=== PATIENT | male | born 1990 | race Hispanic/Latino ===

== ENCOUNTER 2023-02-26 13:36 | Emergency (ER) | payer OTHER ==
[~2023-02-26] VITALS: Ht 177.8 cm; Wt 111.1 kg
[2023-02-26 14:33] LABS: RAPID GROUP A STREP negative (NEGATIVE)
[2023-02-26 14:35] LABS: SARS-CoV-2, RNA, NAAT NEGATIVE SARS CoV-2 (NEGATIVE)
[2023-02-26 14:43] LABS: INFLUENZA TYPE A Negative For Type A (NEGATIVE); INFLUENZA TYPE B Negative For Type B (NEGATIVE)
[2023-02-26] MEDS ORDERED: FAMOTIDINE 20MG TAB PO ONE (16:00)
[2023-02-26] MEDS ORDERED: IBUPROFEN 600 MG TABLET PO ONE (16:00)
[2023-02-26] MEDS ORDERED: PREDNISONE 20 MG TABLET PO ONE (16:00)
[2023-02-26 16:20] LABS: BASOPHILS # (AUTO) 0.01 K/uL (0.00-0.20); BASOPHILS % (AUTO) 0.1 % (0.0-5.0); HEMATOCRIT 46.2 % (42-54); IMMATURE GRANULOCYTE ABSOLUTE 0.02 K/uL (0-1); LYMPHOCYTES # (AUTO) 1.1 K/uL (1.0-4.8); LYMPHOCYTES % (AUTO) 16.4 % (21.0-51.0); MEAN CORPUSCULAR HEMOGLOBIN 28.9 pg (27.0-33.0); MEAN CORPUSCULAR HGB CONC 32.7 g/dL (32.0-36.0); MEAN CORPUSCULAR VOLUME 88.5 fL (79-99); MONOCYTES # (AUTO) 0.5 K/uL (0.1-1.0); MONOCYTES % (AUTO) 7.6 % (3.0-13.0); NEUTROPHILS # (AUTO) 5.1 K/uL (1.8-7.7); NEUTROPHILS % (AUTO) 75.6 % (40.0-77.0); PLATELET COUNT (AUTO) 143 K/uL (130-400); RED BLOOD CELL COUNT(AUTO) 5.22 MIL/uL (4.50-6.20); RED CELL DISTRIBUTION WIDTH 12.3 % (11.0-15.5); WHITE BLOOD COUNT (AUTO) 6.7 K/uL (4.8-10.8)
[2023-02-26 16:22] LABS: CREATININE 1.1 mg/dL (0.5-1.5); POTASSIUM 3.5 mmol/L (3.5-5.1)
[2023-02-26 16:26] LABS: ALBUMIN 3.7 g/dL (3.5-5.0); BILIRUBIN,TOTAL 0.9 mg/dL (0.2-1.0); TOTAL PROTEIN, SERUM 8.3 g/dL (6.0-8.3)
[2023-02-26 16:40] LABS: ADD UA MICROSCOPIC YES; APPEARANCE,URINE CLEAR (CLEAR); BILIRUBIN,URINE NEGATIVE (NEGATIVE); COLOR,URINE YELLOW (YELLOW); GLUCOSE, URINE (UA) NEGATIVE (NEGATIVE); KETONES,URINE 5 mg/dL (NEGATIVE); LEUKOCYTE ESTERASE ,URINE NEGATIVE Leu/uL (NEGATIVE); NITRATE,URINE NEGATIVE (NEGATIVE); OCCULT BLOOD,URINE MODERATE (NEGATIVE); PROTEIN,URINE 50 mg/dL (NEGATIVE)
[2023-02-26 16:43] LABS: BACTERIA,URINE RARE /HPF (None Seen); MUCUS,URINE FEW LPF (None Seen); RBC,URINE 26-50 /HPF (0-1); SQUAMOUS EPITHELIAL CELL,UR RARE /HPF (0-2); WBC,URINE 0-1 /HPF (0-1)
[2023-02-26 16:49] LABS: AMPHET/METH SCREEN,URINE NEGATIVE (NEGATIVE); BARBITURATE SCREEN, URINE NEGATIVE (NEGATIVE); BENZODIAZEPINES SCREEN,URINE NEGATIVE (NEGATIVE); CANNABINOID SCREEN,URINE NEGATIVE (NEGATIVE); COCAINE SCREEN,URINE NEGATIVE (NEGATIVE); OPIATE SCREEN,URINE NEGATIVE (NEGATIVE); PHENCYCLIDINE SCREEN,URINE NEGATIVE (NEGATIVE)
[2023-02-26] MEDS ORDERED: CIPR-278 PO (18:06)
[2023-02-26] MEDS ORDERED: TAMS-1 PO (18:14)
[2023-02-26 18:42] VITALS: BP 123/68; PULSE 84; RESP 16; O2SAT 99
== END 2023-02-26 18:45 | disposition home or self-care (01) ==
LOC: EDH 13:36
DX: N30.00 Acute cystitis without hematuria (principal); N20.0 Calculus of kidney; Z20.822 Contact with and (suspected) exposure to COVID-19; Z79.899 Other long term (current) drug therapy
CPT/HCPCS: 99284; 74176; 71045; 87635; 80053; 80305; 85025; 87880; 87804 ×2; 36415; 81001; C9803

== ENCOUNTER 2023-03-21 19:09 | Emergency (ER) | payer OTHER ==
[~2023-03-21] VITALS: Ht 177.8 cm; Wt 106.6 kg
[~2023-03-21 19:09] MED LIST: CIPR-278 PO; TAMS-1 PO
[2023-03-22] MEDS ORDERED: CETIRIZINE HCL 5 MG TABLET PO SCH (00:30)
[2023-03-22] MEDS ORDERED: CETI10CA5 PO (00:39)
[2023-03-22 00:56] VITALS: BP 120/68; PULSE 90; RESP 19; O2SAT 99
== END 2023-03-22 00:53 | disposition home or self-care (01) ==
LOC: EDH 19:09
DX: H10.13 Acute atopic conjunctivitis, bilateral (principal); Z79.899 Other long term (current) drug therapy

== ENCOUNTER 2023-11-30 13:49 | Emergency (ER) | payer SELFPAY ==
[~2023-11-30] VITALS: Ht 177.8 cm; Wt 111.6 kg
[~2023-11-30 13:49] MED LIST changes: +CETI10CA5 PO
[2023-11-30 14:17] LABS: BASOPHILS # (AUTO) 0.05 K/uL (0.00-0.20); BASOPHILS % (AUTO) 0.5 % (0.0-5.0); HEMATOCRIT 44.4 % (42-54); IMMATURE GRANULOCYTE ABSOLUTE 0.05 K/uL (0-1); LYMPHOCYTES # (AUTO) 2.6 K/uL (1.0-4.8); LYMPHOCYTES % (AUTO) 24.7 % (21.0-51.0); MEAN CORPUSCULAR HEMOGLOBIN 29.1 pg (27.0-33.0); MEAN CORPUSCULAR HGB CONC 32.7 g/dL (32.0-36.0); MEAN CORPUSCULAR VOLUME 89.2 fL (79-99); MONOCYTES # (AUTO) 0.7 K/uL (0.1-1.0); MONOCYTES % (AUTO) 6.9 % (3.0-13.0); NEUTROPHILS # (AUTO) 6.9 K/uL (1.8-7.7); NEUTROPHILS % (AUTO) 66.4 % (40.0-77.0); PLATELET COUNT (AUTO) 230 K/uL (130-400); RED BLOOD CELL COUNT(AUTO) 4.98 MIL/uL (4.50-6.20); RED CELL DISTRIBUTION WIDTH 12.4 % (11.0-15.5); WHITE BLOOD COUNT (AUTO) 10.4 K/uL (4.8-10.8)
[2023-11-30 14:28] LABS: CREATININE 0.9 mg/dL (0.5-1.3); POTASSIUM 3.7 mmol/L (3.5-5.1)
[2023-11-30 14:34] LABS: ALBUMIN 3.8 g/dL (3.5-5.0); BILIRUBIN,TOTAL 0.3 mg/dL (0.2-1.0); TOTAL PROTEIN, SERUM 7.6 g/dL (6.0-8.3)
[2023-11-30 14:45] LABS: B-TYPE NATRIURETIC PEPTIDE 14 pg/mL (0-100)
[2023-11-30 15:06] VITALS: BP 109/69; PULSE 79; RESP 14; TEMP 98.8; O2SAT 99
== END 2023-11-30 15:35 | disposition home or self-care (01) ==
LOC: EDH 13:49
DX: R00.2 Palpitations (principal); Z79.899 Other long term (current) drug therapy
CPT/HCPCS: 36415; 71045; 80053; 82550; 83880; 84484; 85025; 93005

== ENCOUNTER 2024-02-16 18:59 | Emergency (ER) | payer SELFPAY ==
[~2024-02-16] VITALS: Ht 177.8 cm; Wt 113.4 kg
--- NOTE | 2024-02-16 19:04 | ERN ---
ED Note History of Present Illness Stated Complaint: L FLANK PAIN ONSET 1530 Chief Complaint: Flank Pain Time Seen by MD: 19:01 Dictation: PATIENT IS A 33-YEAR-OLD MALE COMING IN TODAY WITH THE ACUTE ONSET OF LEFT FLANK PAIN THAT RADIATES TO LEFT LOWER QUADRANT, COLICKY WITH NAUSEA ONSET15 30 THIS AFTERNOON. NO FEVER NO CHILLS. STATES HE HAS A HISTORY OF KIDNEY STONES HOWEVER NO UROLOGIST AND NO PRIMARY CARE DOCTOR. HAS NOT TAKEN ANYTHING PRIOR TO ARRIVAL FOR PAIN. Allergies: Coded Allergies: No Known Drug Allergies (Unverified Allergy, Unknown, 02/26/23) Home Meds Active Scripts Tamsulosin HCl (Flomax) 0.4 Mg Cap.er.24h, 0.4 MG PO DAILY for 14 Days, #14 CAPSULE.DR 0 Refills Prov:HAYLEE CHANG NP 02/16/24 Ibuprofen (Ibuprofen 800 mg Tab) 800 Mg Tab, 800 MG PO Q8H PRN for fever or pain, #30 TAB 0 Refills Prov:HAYLEE CHANG NP 02/16/24 Levofloxacin (Levofloxacin) 500 Mg Tablet, 1 TAB PO DAILY for 10 Days, #10 TAB 0 Refills Prov:HAYLEE CHANG NP 02/16/24 Cetirizine HCl (Zyrtec) 10 Mg Capsule, 10 MG PO DAILY, #30 CAP 2 Refills Prov:FRANNIE MAN Sr., MD 03/22/23 Tamsulosin HCl (Flomax) 0.4 Mg Cap.er.24h, 0.4 MG PO DAILY, #14 CAPSULE. Prov:KATHRYN ISSAP 02/26/23 Ciprofloxacin HCl (Cipro) 500 Mg Tablet, 1 TAB PO BID for 10 Days, #20 TAB 0 Refills Prov:KATHRYN ISSA [facility] 02/26/23 Past Medical History Past Medical History: No Pertinent History Surgical History: None PSYCH History: no pertinent psych hx RN Note Reviewed/Agreed w/PFSH: Yes Review of System Dictation CONSTITUTIONAL: NEGATIVE EXCEPT FOR HPI HEAD/FACE: NEGATIVE EXCEPT FOR HPI EENT: NEGATIVE EXCEPT FOR HPI RESPIRATORY: NEGATIVE EXCEPT FOR HPI GASTROINTESTINAL/ABDOMINAL: NEGATIVE EXCEPT FOR HPI LEFT FLANK PAIN RADIATING TO LEFT LOWER QUADRANT WITH NAUSEA GENITOURINARY: NEGATIVE EXCEPT FOR HPI MUSCULOSKELETAL: NEGATIVE EXCEPT FOR HPI INTEGUMENTARY: NEGATIVE EXCEPT FOR HPI NEUROLOGICAL/PSYCH: NEGATIVE EXCEPT FOR HPI HEMATOLOGIC/LYMPHATIC: NEGATIVE EXCEPT FOR HPI ALL SYSTEMS NEGATIVE, EXCEPT NOTED ABOVE. 13 POINT REVIEW OF SYSTEMS ASSESSED AND ALL NEGATIVE EXCEPT FOR ABOVE. Initial Vital Sign VS Vital Signs Date Time Temp Pulse Resp B/P (MAP) Pulse Ox O2 Delivery O2 Flow Rate FiO2 02/16/24 19:06 97.3 88 18 143/66 97 Room Air* 0 21 Physical Exam Dictation VITAL SIGNS REVIEWED GENERAL APPEARANCE: ALERT, ORIENTED X 3, MODERATE ACUTE DISTRESS, WELL DEVELOPED, NOURISHED. HEAD AND FACE: NON-TRAUMATIC. EYES: PERRL, PINK CONJUNCTIVAS, EYELID NO TRAUMA, ANTERIOR CHAMBER WITH ARCUS SENILIS. EARS: PINNAS INTACT AND NO SIGNS OF TRAUMA OR ERYTHEMA EAR CANALS CLEAR AND NO DISCHARGE TM NO ERYTHEMA NOSE: NO DISCHARGE, NO BLEEDING. OROPHARYNX: MOUTH NORMAL, TONGUE PINK, PHARYNX CLEAR,NO ERYTHEMA, TONSILS NO EXUDATES, NO ABSCESSES NOTED, MUCOUS MEMBRANE MOIST NECK: SUPPLE, NON-TENDER, NO THYROMEGALY, NO MASSES, NO JVD, NO BRUITS BREAST:DEFERRED CHEST:NO TENDERNESS, NO CREPITUS, NO PARADOXICAL MOVEMENT, NO RETRACTIONS LUNGS:CLEAR, WELL-VENTILATED, SYMMETRIC, NO RALES, NO WHEEZING, NO RHONCHI, NO STRIDOR, GOOD BREATH SOUNDS BILATERALLY HEART: REGULAR RATE, REGULAR RHYTHM, NO MURMUR, NO GALLOPS VASCULAR: NO PERIPHERAL EDEMA, ABDOMEN: SOFT, POSITIVE BOWEL SOUNDS, NONDISTENDED, NO GUARDING, NONTENDER, NO REBOUND, NO MASSES NO HEPATOMEGALY, NO SPLENOMEGALY, NO AHMADI'S SIGN, NO HERNIAS. NO FOCAL TENDERNESS, NEGATIVE CVAT RECTAL: DEFERRED GENITAL: DEFERRED NEUROLOGICAL: NORMAL SPEECH, MOTOR FUNCTION INTACT, SENSORY FUNCTION INTACT MUSCULOSKELETAL: NECK NONTENDER, FULL RANGE OF MOTION, BACK NONTENDER, FULL RANGE OF MOTION, EXTREMITIES: NONTENDER, FULL RANGE OF MOTION SKIN: COLOR PINK, DRY, NO TURGOR, NO RASH, NO LACERATIONS, NO ABRASIONS, NO CONTUSIONS. LYMPHATIC: DEFERRED Results (Laboratory/Radiology) Laboratory/Radiology Laboratory Tests Test 02/16/24 19:27 White Blood Count 16.0 K/uL (4.8-10.8) H Red Blood Count 5.05 MIL/uL (4.50-6.20) Hemoglobin 14.9 g/dL (14.0-18.0) Hematocrit 44.6 % (42-54) Mean Corpuscular Volume 88.3 fL (79-99) Mean Corpuscular Hemoglobin 29.5 pg (27.0-33.0) Mean Corpuscular Hemoglobin Concent 33.4 g/dL (32.0-36.0) Red Cell Distribution Width 12.5 % (11.0-15.5) Platelet Count 212 K/uL (130-400) Mean Platelet Volume 9.6 fL (7.5-10.5) Immature Granulocyte % (Auto) 0.5 % (0-1) Neutrophils (%) (Auto) 84.4 % (40.0-77.0) H Lymphocytes (%) (Auto) 11.4 % (21.0-51.0) L Monocytes (%) (Auto) 3.3 % (3.0-13.0) Eosinophils (%) (Auto) 0.1 % (0.0-8.0) Basophils (%) (Auto) 0.3 % (0.0-5.0) Neutrophils # (Auto) 13.5 K/uL (1.8-7.7) H Lymphocytes # (Auto) 1.8 K/uL (1.0-4.8) Monocytes # (Auto) 0.5 K/uL (0.1-1.0) Eosinophils # (Auto) 0.02 K/uL (0.00-0.70) Basophils # (Auto) 0.05 K/uL (0.00-0.20) Absolute Immature Granulocyte (auto 0.08 K/uL (0-1) Nucleated Red Blood Cells 0.0 % (0.0-0.19) Sodium Level 137 mmol/L (136-145) Potassium Level 3.5 mmol/L (3.5-5.1) Chloride Level 99 mmol/L (101-111) L Carbon Dioxide Level 26 mmol/L (21-32) Blood Urea Nitrogen 16 mg/dL (7-18) Creatinine 1.1 mg/dL (0.5-1.3) Glomerular Filtration Rate Calc 91 mL/min (>90) Random Glucose 127 mg/dL (70-105) H Total Calcium 9.0 mg/dL (8.5-10.1) Labs Reviewed?: Yes ED Course ED Course Orders Procedure Category Date Status Time Tamsulosin Hcl PHA 02/16/24 Complete (Flomax) 19:30 Cbc With Differential LAB 02/16/24 Complete 19:02 0.9%Nacl 1000ml (Ns PHA 02/16/24 Complete 1000ml) 19:30 Ketorolac PHA 02/16/24 Complete Tromethamine 30mg/Ml 19:30 Ondansetron 4mg Inj PHA 02/16/24 Complete (Zofran 4mg Inj) 19:30 Ct Abdomen/Pelvis W/O CT 02/16/24 Resulted Contrast 19:02 Basic Metabolic Panel LAB 02/16/24 Complete 19:02 Ceftriaxone 1g Vial PHA 02/16/24 Complete (Rocephine 1g Inj) 20:30 Ibuprofen 800 Mg Tab PHA 02/16/24 Complete (Motrin) 20:30 Current Medications Medications (Trade) Dose Ordered Sig/Nate Route PRN Reason Start Time Stop Time Status Last Admin Dose Admin Ceftriaxone Sodium (ROCEphine 1G INJ) 1 gm ONCE ONCE IM 02/16/24 20:30 02/16/24 20:39 DC 02/16/24 20:47 Ibuprofen (moTRIN) 800 mg ONCE ONCE PO 02/16/24 20:30 02/16/24 20:31 DC 02/16/24 20:48 Ketorolac Tromethamine (toRADol) 30 mg ONCE ONCE IVP 02/16/24 19:30 02/16/24 19:31 DC 02/16/24 19:12 Ondansetron HCl (zoFRAN 4MG INJ) 4 mg ONCE ONCE IVP 02/16/24 19:30 02/16/24 19:31 DC 02/16/24 19:12 Sodium Chloride 1,000 ml @ 0 mls/hr ONCE ONCE IV 02/16/24 19:30 02/16/24 19:31 DC 02/16/24 19:12 Tamsulosin HCl (FloMAX) 0.8 mg ONCE ONCE PO 02/16/24 19:30 02/16/24 19:31 DC 02/16/24 19:12 Vital Signs Date Time Temp Pulse Resp B/P (MAP) Pulse Ox O2 Delivery O2 Flow Rate FiO2 02/16/24 19:06 97.3 88 18 143/66 97 Room Air 0 02/16/24 19:06 97.3 88 18 143/66 97 Room Air* 0 2106, PAIN IS MARKEDLY RELIEVED AFTER IV FLUIDS AND MEDICATIONS/IV FLUIDS. RENAL FUNCTION IS NORMAL NO ELECTROLYTE IMBALANCE. Medical Decision Making MDM MDM: DIFFERENTIAL DIAGNOSIS: UTI/URETERAL COLIC/KIDNEY STONE STONE/PYELONEPHRITIS/ELECTROLYTE IMBALANCE/DEHYDRATION/FOREST RATIONALE: TESTS CONSIDERED AND ORDERED SECONDARY TO SHARED DECISION MAKING INCLUDE: RADIOLOGY/LABS PREVIOUS OUTSIDE RECORDS REVIEWED: OLD ER VISITS. REVIEWED RISK OF COMPLICATION AND/OR MORBIDITY OR MORTALITY OF PATIENT MANAGEMENT: NONE MEDICATIONS-PER MEDICATION RECONCILIATION SEE NURSE'S NOTES NEED FOR HOSPITALIZATION: PATIENT DOES NOT MEET CRITERIA FOR HOSPITALIZATION. NO NEED FOR EMERGENCY MAJOR/MINOR SURGERY: NO THERE ARE NO SOCIAL CONCERNS WITH THIS PATIENT. PRESCRIPTION DRUG MANAGEMENT FLOMAX/MOTRIN/LEVAQUIN PRESCRIPTIONS WILL INCLUDE SYMPTOMATIC CARE PATIENT'S PRIOR EXTERNAL MEDICAL RECORDS FROM OTHER ER VISITS WERE REVIEWED BY ME INDICATED. PRIOR TESTING AND RESULTS FROM PREVIOUS VISITS WERE REVIEWED. PRIOR TESTS WERE TAKEN INTO ACCOUNT WITH MEDICAL DECISION MAKING AND RESOURCE UTILIZATION, INDEPENDENT HISTORIAN/HISTORIANS WERE USED TO OBTAIN COMPLETE MEDICAL HISTORY. I INDEPENDENTLY INTERPRETED THE TEST THAT WERE PERFORMED, RESULTS WERE REVIEWED BY ME AND CONSIDERED FINDINGS ON RADIOLOGY IF ORDERED. MEDICAL MANAGEMENT AND EXAMINATION INTERPRETATION DISCUSSIONS WERE HAD BY ME WITH OTHER QUALIFIED HEALTHCARE PROFESSIONALS INDICATED FOR THE PATIENT'S CARE. DX & DISP Disposition: Discharge Departure Impression: Primary Impression: Calculus of left kidney Additional Impressions: Hydronephrosis, left, Hyperglycemia, Ureter colic Condition: Stable Scripts Tamsulosin HCl (Flomax) 0.4 Mg Cap.er.24h 0.4 MG PO DAILY for 14 Days, #14 CAPSULE.DR 0 Refills Prov: HAYLEE CHANG [employer] 02/16/24 Ibuprofen (Ibuprofen 800 mg Tab) 800 Mg Tab 800 MG PO Q8H PRN for fever or pain, #30 TAB 0 Refills Prov: HAYLEE CHANG [employer] 02/16/24 Levofloxacin (Levofloxacin) 500 Mg Tablet 1 TAB PO DAILY for 10 Days, #10 TAB 0 Refills Prov: HAYLEE CHANG [employer] 02/16/24 Additional Instructions: FOLLOW-UP WITH PRIMARY CARE PROVIDER IN 1 TO 2 DAYS. TAKE MEDICATIONS DIRECTED HERE IN THE EMERGENCY ROOM. OKAY TO CONTINUE HOME MEDICATIONS UNLESS OTHERWISE DISCUSSED DURING YOUR VISIT IN THE EMERGENCY ROOM TODAY. RETURN TO YOUR NEAREST EMERGENCY ROOM IF SYMPTOMS WORSEN OR IF THERE IS NO IMPROVEMENT. CALL 911 IF YOU NEED IMMEDIATE ASSISTANCE. TAKE TYLENOL OR MOTRIN [id number] NEEDED AND IF NO CONTRAINDICATIONS ARE PRESENT. INCREASE ORAL HYDRATION. A WOUND CULTURE OR URINE CULTURE WAS ORDERED HERE IN THE EMERGENCY ROOM DEPARTMENT PLEASE FOLLOW-UP WITH PRIMARY CARE PROVIDER AND ADVISE THEM TO GET REPEAT PORTS FROM OUR FACILITY. IF YOU HAD ANY ERASMO WRAP/SPLINTS THAT WERE APPLIED HERE, PLEASE DO NOT REMOVE THEM UNTIL YOU SEE YOUR PRIMARY CARE OR SPECIALTY. INCREASE WATER TO A HALF A GAL A DAY. TAKE ANTIBIOTICS DIRECTED UNTIL GONE. TAKE FLOMAX DAILY FOR THE NEXT14 DAYS. Referrals: SELF,REFERRAL (PCP) ATTESTATION BY PHYSICIAN I PERFORMED THE SUBSTANTIVE PORTION OF THE VISIT. I HAVE REVIEWED AND PERSONALLY MADE AND APPROVED THE MANAGEMENT PLAN THAT IS DOCUMENTED IN THE NOTE BY MYSELF FOR THE A PP. I ACKNOWLEDGED FOR RESPONSIBILITY FOR THE PATIENT'S MANAGEMENT PLAN. HAYLEE CHANG NP Feb 16, 2024 19:04 LEO JUNIOR MD Feb 19, 2024 03:03
[2024-02-16 19:06] VITALS: BP 143/66; PULSE 88; RESP 18; TEMP 97.3; O2SAT 97
[2024-02-16] MEDS: ketOROlac 30MG VIAL (30MG/ML) IVP ONE (19:12)
[2024-02-16] MEDS: 0.9%NACL 1000ML 1,000 ML IV ONE (19:12)
[2024-02-16] MEDS: ondanSETRON 4MG INJ IVP ONE (19:12)
[2024-02-16] MEDS: tamSULOsin HCL 0.4 MG CAP.ER.24H PO ONE (19:12)
[2024-02-16 19:37] LABS: BASOPHILS # (AUTO) 0.05 K/uL (0.00-0.20); BASOPHILS % (AUTO) 0.3 % (0.0-5.0); EOSINOPHILS # (AUTO) 0.02 K/uL (0.00-0.70); EOSINOPHILS % (AUTO) 0.1 % (0.0-8.0); HEMATOCRIT 44.6 % (42-54); IMMATURE GRANULOCYTE ABSOLUTE 0.08 K/uL (0-1); LYMPHOCYTES # (AUTO) 1.8 K/uL (1.0-4.8); LYMPHOCYTES % (AUTO) 11.4 % (21.0-51.0); MEAN CORPUSCULAR HEMOGLOBIN 29.5 pg (27.0-33.0); MEAN CORPUSCULAR HGB CONC 33.4 g/dL (32.0-36.0); MEAN CORPUSCULAR VOLUME 88.3 fL (79-99); MONOCYTES # (AUTO) 0.5 K/uL (0.1-1.0); MONOCYTES % (AUTO) 3.3 % (3.0-13.0); NEUTROPHILS # (AUTO) 13.5 K/uL (1.8-7.7); NEUTROPHILS % (AUTO) 84.4 % (40.0-77.0); PLATELET COUNT (AUTO) 212 K/uL (130-400); RED BLOOD CELL COUNT(AUTO) 5.05 MIL/uL (4.50-6.20); RED CELL DISTRIBUTION WIDTH 12.5 % (11.0-15.5)
[2024-02-16 19:45] LABS: CREATININE 1.1 mg/dL (0.5-1.3); POTASSIUM 3.5 mmol/L (3.5-5.1)
--- NOTE | 2024-02-16 19:57 | HMCIMG ---
CT ABDOMEN/PELVIS W/O CONTRAST HISTORY: Left flank pain COMPARISON: 02/26/2023 TECHNIQUE: Multiple sequential axial images of the abdomen and pelvis were obtained from the dome of the diaphragm through symphysis pubis. Patient was not given contrast through intravenous route. Oral contrast was not given. FINDINGS: No pleural effusion is seen bilaterally. There is no evidence of parenchymal disease or pulmonary nodule of the visualized lower lungs. Degenerative changes of the thoracolumbar spine are present. The heart is not enlarged. Liver is enlarged with fatty changes measuring 19 cm. The liver, spleen, adrenal glands and pancreas are unremarkable. No hydronephrosis is seen on the right. There is left hydronephrosis with 5.7 mm renal stone in the left proximal ureter. Fecal material is seen in the colon. There are normal size retroperitoneal and mesenteric lymph nodes. No ascites is seen. Appendix is not well visualized. Pelvic sidewalls are symmetric bilaterally. Bladder is poorly distended. IMPRESSION: 1. Left hydronephrosis with 5.7 mm renal stone in the left proximal ureter. CT was performed with one or more following dose reduction techniques: automated exposure control, adjustment of the mA and kv according to patient's size, or use of a iterative reconstruction technique.
[2024-02-16] MEDS: cefTRIAXone 1G VIAL IM ONE (20:47)
[2024-02-16] MEDS: ibuPROFEN 800 MG TAB PO ONE (20:48)
[2024-02-16] MEDS ORDERED: IBUP-2077 PO (21:13)
[2024-02-16] MEDS ORDERED: LEVO-70 PO (21:13)
[2024-02-16] MEDS ORDERED: TAMS-1 PO (21:13)
== END 2024-02-16 21:45 | disposition admitted as inpatient to this hospital (09) ==
LOC: EDH 18:59
DX: N13.2 Hydronephrosis with renal and ureteral calculous obstruction (principal); R73.9 Hyperglycemia, unspecified; Z79.899 Other long term (current) drug therapy
CPT/HCPCS: 99285; 74176; 96374; 96375; 80048; 85025; 36415; 96372; J7030; J0696; J2405; J1885